=== PATIENT | male | born 1990 | race Two or more races ===

== ENCOUNTER 2020-08-07 20:45 | Emergency (ER) | payer MEDICAID ==
[~2020-08-07] VITALS: Ht 193 cm; Wt 140.0 kg
[2020-08-07 20:55] VITALS: BP 142/83
[2020-08-07] MEDS ORDERED: IBUPROFEN 600MG TABLET PO ONE (22:00)
[2020-08-07] MEDS ORDERED: ONDANSETRON 4MG ODT PO ONE (22:00)
== END 2020-08-08 01:02 | disposition home or self-care (01) ==
LOC: ER 20:45
DX: U07.1 COVID-19 (principal)
CPT/HCPCS: 71045; 82962; 99283; C9803; Q0162; U0003